=== PATIENT | female | born 1975 | race Caucasian/White ===

== ENCOUNTER 2017-05-09 08:19 | Day surgery (SDC) | payer OTHER ==
[2017-05-02 11:02] VITALS: BMI 27.4
--- NOTE | 2017-05-06 10:01 | HP ---
Admitting History and Physical - Primary Care Physician PCP: Elisa Youssef - Admission Chief Complaint: Right breast papilloma History of Present Illness: 41 year old premenapausal female with left suspicious nodule 01/2017. US core biopsy at 11:30 showed intraductal papilloma without atypia. 02/07/2017. History Source: Patient Limitations to Obtaining History: No Limitations - Past Medical History ...LMP: 05/01/17 ...: No ENT: Yes: Other (allergies) - Past Surgical History Past Surgical History: Yes: Appendectomy, (x2), Hernia Repair (2006), Tubal Ligation Additional Past Surgical History: foot surgery - Smoking History Smoking history: Never smoked - Alcohol/Substance Use Hx Alcohol Use: No Home Medications - Allergies Allergies/Adverse Reactions: Allergies Allergy/AdvReac Type Severity Reaction Status Date / Time No Known Allergies Allergy Verified 05/02/17 10:42 - Home Medications Home Medications: Ambulatory Orders Albuterol Sulfate Inhaler - [Ventolin Hfa Inhaler -] 1 - 2 inh PO BID 05/02/17 Fluticasone Prop 0.05% Nasal [Flonase -] 1 - 2 spray NS DAILY 05/02/17 Loratadine 10 mg PO DAILY 05/02/17 Family Disease History - Family Disease History Family Disease History: CA: Mother (thyroid ca 54) Physical Examination Constitutional: Yes: Well Nourished Breast(s): Yes: Other (diffusely nodular no palpable masses or adenopathy left breast biopsy changes) Problem List - Problems (1) Intraductal papilloma of left breast Code(s): D24.2 - BENIGN NEOPLASM OF LEFT BREAST Assessment/Plan Left breast wide excision and mammogram needle loaliztion
[2017-05-09] MEDS ORDERED: PROPOFOL 20 ML ONE ×2 (11:45→12:43)
[2017-05-09] MEDS ORDERED: MIDAZOLAM HCL 2 MG/2 ML SINGLE DOSE VIAL ONE ×2 (11:45→12:37)
[2017-05-09] MEDS ORDERED: LIDOCAINE HCL 1%, 10 MG/ML (20ML VIAL) ONE (11:52)
[2017-05-09] MEDS ORDERED: BUPIVACAINE HCL/PF 2.5 MG/ML - 30 ML VIAL IJ ONE (11:52)
[2017-05-09] MEDS ORDERED: ceFAZolin SODIUM 1 GM VIAL ONE (12:28)
[2017-05-09] MEDS ORDERED: LIDOCAINE HCL 1%, 10 MG/ML (50 mL VIAL) IJ ONE (12:35)
[2017-05-09] MEDS ORDERED: BUPIVACAINE HCL/PF 0.25% (2.5MG/ML) 10 ML VIAL IJ ONE (13:04)
[2017-05-09] MEDS ORDERED: DEXAMETHASONE SOD PHOSPHATE 4 MG/1 ML VIAL ONE (13:16)
[2017-05-09] MEDS ORDERED: ONDANSETRON 4 MG/2 ML VIAL ONE ×2 (13:16→13:53)
[2017-05-09] MEDS ORDERED: KETOROLAC TROMETHAMINE 30 MG/1 ML VIAL IVPUSH PRN (13:27)
[2017-05-09] MEDS ORDERED: ONDANSETRON 4 MG/2 ML VIAL IVPUSH PRN ×2 (13:27→13:29)
[2017-05-09] MEDS ORDERED: oxyCODONE HCL 5 MG TABLET PO PRN (13:29)
[2017-05-09] MEDS ORDERED: LACTATED RINGERS SOLUTION 1,000 ML IV SCH (13:30)
[2017-05-09] MEDS ORDERED: DEXTROSE 5%-0.45% SALINE 1,000 ML IV SCH (13:30)
[2017-05-09 13:47] VITALS: TEMP 98.8
[2017-05-09] MEDS ORDERED: ACETAMINOPHEN 325 MG TABLET (FP) PO ONE (15:00)
[2017-05-09 16:35] VITALS: BP 108/67; PULSE 65
--- NOTE | 2017-05-14 16:35 | PATH ---
Surgical Pathology Report Patient Name: MILI NUNEZ [facility]. Rec. #: [id number] /Age/Gender: 1975 (Age: 41) / F Account: [id number] Location: [facility] Taken: 05/09/2017 Received: 05/09/2017 Reported: 05/14/2017 Physicians: Elisa Youssef M.D. Specimen(s) Received LEFT BREAST WIDE EXCISION Clinical History Left breast wide excision Final Diagnosis BREAST, LEFT, WIDE EXCISION: BENIGN BREAST TISSUE SHOWING FIBROCYSTIC CHANGES INCLUDING CYSTIC AND PAPILLARY APOCRINE METAPLASIA, USUAL DUCTAL HYPERPLASIA (UDH) AND STROMAL FIBROSIS. PRIOR BIOPSY THE CHANGES ARE PRESENT. Electronically Signed Noemi Quintero M.D. Gross Description Received in formalin, labeled "left breast wide excision," is a 3.4 x 2.5 x 1.9 cm. bailey-yellow, irregular, portion of fibroadipose tissue. There is a needle localization wire separately received within the same container which appears to have detached from the specimen. There is a short suture marking the superior aspect and a long suture marking the lateral aspect, per the surgeon. There is no skin present. The specimen is inked as follows: superior and lateral blue; inferior green; medial yellow; anterior red; deep black. The specimen is serially sectioned from superior to inferior. Sectioning reveals diffuse dense, white fibrous tissue. A acevedo metallic biopsy clip is identified. No definitive mass is identified. The specimen is entirely and sequentially submitted in 8 cassettes with the superior margin in cassette 1, inferior margin in cassette 8 and the biopsy clip in cassette 2. Time to formalin fixation: 18 minutes Total formalin fixation time: Approximately 29 hours. 05/10/2017 [facility]05/10/2017
== END 2017-05-09 16:00 | disposition home or self-care (01) ==
LOC: FASU 08:19
PROVIDERS: ATTEND Surgery
PROC: 0HBU0ZX Excision of Left Breast, Open Approach, Diagnostic (ICD-10-PCS; principal; 2017-05-09 12:35)
DX: D24.2 Benign neoplasm of left breast (principal)
CPT/HCPCS: 19281; 84703; 88307-TC